=== PATIENT | female | born 1955 | race Caucasian/White ===

== ENCOUNTER 2022-10-19 11:13 | Outpatient (AMB) | payer MEDICARE, SELFPAY ==
--- NOTE | 2022-10-19 12:21 | AM.OFFWIN_ITS ---
Intake Vital Signs 10/19/22 12:23 BP 122/72 Blood Pressure Location Lt brachial Position Sitting Pulse 62 Pulse Source Pulse Oximeter Temp 97.7 F Temp Source Temporal Artery Scan Pulse Oximetry (%) 97 Oxygen Delivery Method Room Air Intake Visit Reasons: EP, Right ankle pain Patient Tobacco Use Status: Never used Tobacco Allergies No Known Allergies Allergy (Verified 10/19/22 12:38) Medication List - Last Reconciled 10/19/22 by Roscoe Jacobsen MD alendronate 35 mg PO QWEEK chlorthalidone 25 mg PO DAILY losartan 50 mg PO DAILY meloxicam 15 mg PO DAILY rosuvastatin 20 mg PO BEDTIME Do you need a note to return to daycare/school/sports/work: Yes HPI EP, Right ankle pain HPI Details Patient has injured her left foot and not the right foot. 67-year-old female presents to the [facility] for a sick visit. She tripped and fell over the stairs at home. Severe pain in the left foot around the ankle region. [facility] Social History Patient Tobacco Use Status: Never used Tobacco Physical Exam Vital Signs: Last Vital Signs Temp 97.7 F 10/19/22 12:23 Pulse 62 10/19/22 12:23 BP 122/72 10/19/22 12:23 Pulse Ox 97 10/19/22 12:23 Oxygen Delivery Method Room Air 10/19/22 12:23 Extrem Other: Left foot: Ankle is swollen. Pain on flexion. Assessment & Plan Assessment & Plan (1) Sprain of left ankle: Code(s): S93.402A - Sprain of unspecified ligament of left ankle, initial encounter Qualifiers: Encounter type: initial encounter Involved ligament of ankle: unspecified ligament Qualified Code(s): S93.402A - Sprain of unspecified ligament of left ankle, initial encounter Plan: X-ray images were personally reviewed by me. Nondisplaced fracture in the lower end of fibula noted. Aircast provided. Patient was advised to stay off the leg. A stat orthopedic appointment has been requested. Orders: Orders XR ankle LT min 3V Today S93.402A - Sprain of unspecified ligament of left ankle, initial encounter Referrals Orthopedics Referral S93.402A - Sprain of unspecified ligament of left ankle, initial encounter Coding Level of Care Code Est Pt Level 4 (99371) Diagnoses Sprain of left ankle, unspecified ligament, initial encounter S93.402A Encounter type: initial encounter Involved ligament of ankle: unspecified ligament
[2022-10-19 12:23] VITALS: BP 122/72; PULSE 62; TEMP 36.5; O2SAT 97
== END 2022-10-19 14:50 | disposition home or self-care (01) ==
PROVIDERS: PCP Pediatrics; Visit Provider Internal Medicine
DX: S93.402A Sprain of unspecified ligament of left ankle, initial encounter (principal)
CPT/HCPCS: 99214

== ENCOUNTER 2022-10-19 13:25 | Outpatient (REF) | payer MEDICARE, SELFPAY ==
--- NOTE | ~2022-10-19 | XR_ITS ---
EXAMINATION: XR ANKLE, LEFT CLINICAL INFORMATION: Sprain COMPARISON: None available. TECHNIQUE: AP, lateral, and mortise views of the left ankle. FINDINGS: Lateral malleolar soft tissue swelling. Nondisplaced oblique fracture of the distal fibula. Mortise remains intact. Alignment and articulations are maintained. XR/XR ankle LT min 3V IMPRESSION: Nondisplaced distal left fibular fracture with soft tissue swelling.
== END 2022-10-19 13:26 | disposition home or self-care (01) ==
LOC: HO.HMGCX 13:25
PROVIDERS: PCP Pediatrics; Visit Provider Internal Medicine
DX: S93.402A Sprain of unspecified ligament of left ankle, initial encounter (principal)
CPT/HCPCS: 73610

== ENCOUNTER 2022-10-27 10:27 | Outpatient (AMB) | payer MEDICARE, SELFPAY ==
--- NOTE | 2022-10-27 10:43 | A.OFFVIS_ITS ---
Intake Vital Signs 10/27/22 11:07 Height 5 ft 6 in Weight 179 lb BMI 28.9 Intake Visit Reasons: fc-Non displaced fibular fracture left ankel Intake Note: Dara a 67 year old female who presents today as a new patient for an evaluation of left ankle, DOI 10/19/22. Patient reports that she tripped and fell over the stairs outside of home. She presented to [facility] walk in clinic where xrays were taken and placed in an air cast. Currently having achy pain and bruising. Denies numbness or tingling. Allergies No Known Allergies Allergy (Verified 10/27/22 11:06) HPI fc-Non displaced fibular fracture left ankel HPI Details 67-year-old female who presents to the [facility] today for left ankle injury after tripping and falling over the stairs outside of his home, 10/19/22. She was seen at walk-in clinic where x-rays were performed and she was placed in a splint She states she has achy pain and bruising in her ankle. She denies any numbness or tingling. 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 No discomfort along the posterior aspect of the ankle, no deformity along the Achilles tendon, negative Baron?s. No pain along the syndesmosis or anterior tibia. No laxity, NVI. Office Procedures Fracture Care Fracture Billing Code: Fracture Billing Code Results Reviewed Results Reviewed: xrays of the left ankle obtained in the ED on 10/19 show Nondisplaced distal left fibular fracture with soft tissue swelling. Assessment & Plan Assessment & Plan (1) Closed left ankle fracture: Code(s): S82.892A - Other fracture of left lower leg, initial encounter for closed fracture Qualifiers: Encounter type: initial encounter Qualified Code(s): S82.892A - Other fracture of left lower leg, initial encounter for closed fracture Plan She was fit for a tall boot in the office today. She will be weight bearing as tolerated. She can remove the boot for showering, resting and sleeping. I would like to see her back in 6 weeks with new x-rays, sooner if needed. 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 Patient Instructions: Scribed for Nando Aguirre PA-C, by Kumar Ríos medical management specialist, on 10/27/2022 at 10:30 AM EST. I, Nando Aguirre PA-C, have personally reviewed and agree with the information entered by the scribe. Coding Level of Care Code New Pt Level 3 (65752) Diagnoses Closed fracture of left ankle, initial encounter S82.892A Encounter type: initial encounter CPT Codes Fracture Care - Fracture Billing Code: Fracture Billing Code ([id number])
[2022-10-27 11:07] VITALS: BMI 28.9
== END 2022-10-27 11:43 | disposition home or self-care (01) ==
PROVIDERS: PCP Pediatrics; Visit Provider Physician Assistant
DX: S82.892A Other fracture of left lower leg, initial encounter for closed fracture (principal)
CPT/HCPCS: 99203

== ENCOUNTER → 2022-10-27 10:27 | Outpatient (BNVA) | payer MEDICARE, SELFPAY | PROVIDERS: PCP Pediatrics; Visit Provider Physician Assistant ==

== ENCOUNTER 2022-12-08 12:25 | Outpatient (REF) | payer MEDICARE, SELFPAY ==
--- NOTE | ~2022-12-08 | XR_ITS ---
EXAMINATION: XR ANKLE, LEFT CLINICAL INFORMATION: Left ankle 10/19/2022 COMPARISON: None available. TECHNIQUE: AP, lateral, and mortise views of the left ankle. FINDINGS: No change in position or alignment of the oblique fracture of the distal fibula. Interval development of abundant callus formation. The ankle mortise is well-maintained. Interval decrease in soft tissue swelling over the lateral malleolus. XR/XR ankle LT min 3V IMPRESSION: Healing nondisplaced fracture of the distal left fibula.
== END 2022-12-08 12:26 | disposition home or self-care (01) ==
LOC: HO.HOSX 12:25
PROVIDERS: Visit Provider Physician Assistant
DX: M25.572 Pain in left ankle and joints of left foot (principal); S82.892D Other fracture of left lower leg, subsequent encounter for closed fracture with routine healing; X58.XXXD Exposure to other specified factors, subsequent encounter
CPT/HCPCS: 73610; 99212

== ENCOUNTER 2022-12-08 15:16 | Outpatient (AMB) | payer MEDICARE, SELFPAY ==
[2022-12-08 15:27] VITALS: BMI 28.9
--- NOTE | 2022-12-08 15:27 | A.OFFVIS_ITS ---
Intake Vital Signs 12/08/22 15:27 Height 5 ft 6 in Weight 179 lb BMI 28.9 Intake Visit Reasons: ov- Non displaced fibular fracture left ankel Intake Note: Dara bolanos 67 year old female presents today for a follow up of left fibular fx, DOI 10/19/22. Patient reports she is doing well, denies pain or discomfort. She continues to wear boot as instructed. Allergies No Known Allergies Allergy (Verified 12/08/22 15:34) HPI ov- Non displaced fibular fracture left ankel HPI Details 67-year-old female who returns to the [facility] today for a follow-up of left ankle fracture, 10/19/22. She states she has no pain or discomfort in her ankle and is doing well overall. She continues to wear the boot as instructed. 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 No discomfort along the posterior aspect of the ankle, no deformity along the Achilles tendon, negative Baron?s. No pain along the syndesmosis or anterior tibia. No laxity, NVI. Results Reviewed Results Reviewed: xrays of the left ankle obtained today show healing Nondisplaced distal left fibular fracture with callus formation Assessment & Plan Assessment & Plan (1) Closed left ankle fracture: Code(s): S82.892A - Other fracture of left lower leg, initial encounter for closed fracture Qualifiers: Encounter type: initial encounter Qualified Code(s): S82.892A - Other fracture of left lower leg, initial encounter for closed fracture Plan She is going to transition to a lace up ankle brace weight bearing as tolerated. She was also given an order of physical therapy to begin gentle strengthening, ROM, heel quad stretching and proprioceptive training. She can increase activity as tolerated. I did educate her on importance of not overdoing her activities as she is still in her healing process. I would expect over the next 6 weeks her symptoms will continue to improve as the fracture heals. If symptoms persist or worsens, patient will contact the office, otherwise follow-up as needed. Orders: Orders PT Evaluation and Treatment 12/08/22 S82.892A - Other fracture of left lower leg, initial encounter for closed fracture XR ankle LT min 3V 12/08/22 M25.572 - Pain in left ankle and joints of left foot Patient Instructions: Scribed for Nando Aguirre PA-C, by Kumar Ríos medical photographer, on 12/08/2022 at 3:30 PM EST. Nando Vargas PA-C, have personally reviewed and agree with the information entered by the scribe. Coding Level of Care Code Global (30168) Diagnoses Closed fracture of left ankle, initial encounter S82.892A Encounter type: initial encounter
== END 2022-12-08 15:54 | disposition home or self-care (01) ==
PROVIDERS: PCP Pediatrics; Visit Provider Physician Assistant
DX: S82.892A Other fracture of left lower leg, initial encounter for closed fracture (principal)
CPT/HCPCS: 99213

== ENCOUNTER 2022-12-20 14:00 | Outpatient (RCR) | payer MEDICARE, SELFPAY ==
--- NOTE | 2022-12-15 14:50 | MHC.PT.EP ---
[facility] [place] Office [place] Office [place] Office [address] [phone] F: [phone] F: [phone] F: [phone] F: [phone] Physical Therapy Plan of Care Date of Evaluation: 12/15/22 Date of Surgery: Diagnosis: Fx of L lower leg. Assessment: Patient is a 67 year old R handed female who presents with s/s consistent with s/p L ankle fracture, ankle pain. 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 Patient past medical history includes OA of knee and PF of L foot. Current impairments include pain, balance, flexibility, ROM, strength, activity tolerance and functional mobility. Functional limitations include decreased ability to stand, walk, negotiate stairs, clean, and be on feet for longer periods of time. Patient is motivated with good rehab potential. Skilled PT will address impairments and functional limitations in order to achieve goals. Frequency and Duration: The patient will be seen 2x/week for 5 weeks Short Term Goals: I with HEP - 2 weeks AROM WNL - 3 weeks Symmetrical gait, no brace - 3 weeks [place] Goals: Able to walk pain free 1 mile - 5 weeks Negotiate stairs pain free - 5 weeks LEFS 60/80 - 5 weeks Treatment Plan: Modalities to reduce pain, spasms and effusion. Manual therapy to restore motion and function. Therapeutic exercise to improve strength and flexibility. Neuromuscular re-education for posture and balance. Therapeutic activities to return to functional activities of daily living. Electronically signed by: Ashwin Cox PT Please sign and return to therapist. Thank you for your referral.
--- NOTE | 2023-10-20 10:43 | MHC.PT.DC ---
[facility] [place] Office [place] Office [place] Office [address] Tamir Yao [address] [phone] F: [phone] F: [phone] F: [phone] F: [phone] Physical Therapy Discharge Report Diagnosis: Fx of L lower leg. Date of Surgery: Date of Evaluation: 12/15/22 Date of Discharge: 02/22/23 Treatments to Date: 2 Cancellations to Date: No Shows to Date: Discharge Status: Independent with HEP Patient Elected to Stop Discharge Summary: 12/20/22: pt progressed with skilled PT today. no pain with above program. we will see pt one more time and update HEP. likely d/c to HEP at that point. Patient is a 67 year old R handed female who presents with s/s consistent with s/p L ankle fracture, ankle pain. 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 Patient past medical history includes OA of knee and PF of L foot. Current impairments include pain, balance, flexibility, ROM, strength, activity tolerance and functional mobility. Functional limitations include decreased ability to stand, walk, negotiate stairs, clean, and be on feet for longer periods of time. Patient is motivated with good rehab potential. Skilled PT will address impairments and functional limitations in order to achieve goals. Electronically signed by: Ashwin Cox, PT Please sign and return to therapist. Thank you for your referral.
== END 2023-10-20 10:44 | disposition home or self-care (01) ==
LOC: HO.PTCHIC 14:00
PROVIDERS: PCP Pediatrics; Visit Provider Physician Assistant
DX: S82.892A Other fracture of left lower leg, initial encounter for closed fracture (principal)
CPT/HCPCS: 97110; 97112; 97162

== ENCOUNTER 2023-08-17 18:10 | Outpatient (REF) | payer MEDICARE, SELFPAY ==
--- NOTE | ~2023-08-17 | MR_ITS ---
EXAMINATION: MR BRAIN WITHOUT CONTRAST CLINICAL INFORMATION: 68-year-old with aphasia. COMPARISON: None available. TECHNIQUE: MRI of the brain was obtained using routine sequences without contrast. FINDINGS: Brain Volume: Within normal limits within the limitations of qualitative assessment. Structural: Minimal cerebellar tonsillar ectopia on the right, normal variant. Brain and Meninges: DWI sequence demonstrates no restricted diffusion to suggest acute or subacute cerebral ischemia. Scattered patchy and punctate foci of FLAIR/T2 signal hyperintensity in the subcortical and deeper white matter of both cerebral hemispheres, which are nonspecific findings but likely reflect chronic ischemic microangiopathy. A few punctate T2 hyperintensities are seen in the devorah, which could also reflect minimal chronic ischemic microangiopathy. Gradient refocused imaging demonstrates no abnormal susceptibility-weighted signal loss to suggest hemorrhage, hemosiderin staining or abnormal mineralization. No extra-axial fluid collections, space-occupying process or mass effect are identified. Ventricles and Subarachnoid Spaces: The ventricular system and subarachnoid spaces are within normal range; there is no hydrocephalus. Orbital Structures: The visualized orbital structures are grossly unremarkable within the limitations of the study. Vascular: Signal voids are noted in the visualized major intracranial vessels. Note that there is probably some slow flow related signal hyperintensity in the left transverse and sigmoid sinuses. Osseous Structures, Sinuses/Mastoids, Extracranial Soft Tissues: There is hyperostosis frontalis interna, which is an anatomic variant. There is minor mucosal thickening in the anterior ethmoid complex and there is nasal septal deviation to the right. MR/MR head/brain wo con IMPRESSION: 1. Chronic ischemic microangiopathy in the white matter of both cerebral hemispheres and minimal chronic ischemic microangiopathy in the devorah. 2. No evidence for acute or subacute cerebral ischemia, hemorrhage, extra-axial fluid collection, space-occupying process, mass effect or hydrocephalus.
== END 2023-08-17 18:11 | disposition home or self-care (01) ==
LOC: HO.MRI 18:10
PROVIDERS: PCP Pediatrics; Visit Provider Pediatrics
DX: R47.01 Aphasia (principal)
CPT/HCPCS: 70551

== ENCOUNTER 2024-05-22 12:00 | Outpatient (REF) | payer MEDICARE, SELFPAY ==
[2024-05-22 14:10] LABS: Vitamin B12 513 pg/mL (200-900)
--- OUTSIDE RECORDS SUMMARY | 2024-05-22 14:48 | XMS_ITS | Patient Health Record ---
Author Organization [facility] Address [address] [place] [address] Care Team Providers Care Automotive Dismantler Name Role Phone Dwayne Whittington MD Primary Care Provider Unavail able Rashaad Bonilla Unavailable [phone] Allergies No Known Allergies Reason For Referral No Information Medications Medication SIG (Take, Route, Frequency, Duration) Notes Start Date End Date Status Meloxicam Active Omeprazole 20 MG 1 capsule 30 minutes before morning meal Orally Once a day for 30 day(s) Active Flonase Active Losartan Potassium 50 MG 1 tablet Orally Once a day for 30 day(s) Active Chlorthalidone 25 MG 1 tablet in the morning with food Orally Once a day for 30 day(s) Active Diclofenac Not-Takin g Cetirizine HCl Activ e Allergy Active Rosuvastatin Calcium 20 MG 1 tablet Oral ly Once a day for 30 day(s) Active Immunizations Vaccine Route Administration Date Status Comme nts COVID-19 Moderna Vaccine Unknown 11/18/2021 Administere d Social History Tobacco Use: Social History Observation Description Date Details (start date - stop date) Never Smoker NA - NA Tobacco Use/Smoking Question Answer Notes Are you a: nonsmoker Additional Findings: Tobacco Non-User Current no n-smoker Alcohol Screen Question Answer Notes Did you have a drink contain ing alcohol in the past year? Yes How often did you have a dri nk containing alcohol in the past year? Monthly or less (1 point) Points 1 Interpretation Negative Tobacco use other than smoking: Question Answer Notes Are you an other tobacco user? No Plan Of Treatment Pending Test Test Name Order Date X ray : Foot, right 3V 01/28/2022 Insurance Providers Payer Name Payer Address Payer Phone Subscriber Number Group Number Insured Name Patient Relationship to Insured Coverage Start Date Coverage End Date [employer] 65 Medicare Preferred [address] [place] [address] [phone] [id number] Dara Connor Self - patient is the insured Medical (General) History Medical History History ICD Code Arthritis Back,Hip,and Knee pain Headaches/Migraines Osteoporosis Reflux ( GERD) Surgical History Surgery Date(Month/Year) Hospitalization History Reason Date(Month/Year) 02/28
--- OUTSIDE RECORDS SUMMARY | 2024-05-22 14:48 | XMS_ITS | Clinical Summary ---
Author Organization [employer] Address [address] [place] [address] [place] [address] Care Team Providers Care Insurance Plan Specialist Name Role Phone Unavailable Primary Care Provider Unavailabl e Social History Tobacco Use Types Packs/Day Years Used Date Smoking Tobacco: Never Assessed Comments Unknown Sex and Gender Information Value Date Recorded Sex Assigned at Female 12/07/2021 10:24 AM EDT Legal Sex Female 10:24 AM EDT Gender Identity Choose not to disclose 10:24 AM EDT Sexual Orientation Choose not to disclose 2021 10:24 AM EDT Plan of Treatment Health Maintenance Due Date Last Done Comments CT Colonography 1953 Colonoscopy 1953 Colorectal Cancer Screening 1953 Depression Screening 1953 FIT DNA/Cologuard 1953 FIT 1953 FOBT 1953 Sigmoidoscopy 1953 Alcohol/Substance Use Screening 1965 Tobacco Screening 1965 DTaP/Tdap/Td Vaccines (1 - Tdap) 1972 Mammogram 1993 Pneumococcal Vaccine: 50+ Ye ars (1 of 1 - PCV) 06/08/2003 Zoster Vaccines (1 of 2) 06/08/2003 COVID-19 Vaccine ( - 2023-2 5 season) 2023 Influenza Vaccine (#1) 2023 RSV Patients and Pa tients Aged 60 years or older (1 - 1-dose 75+ series) 2028 HIB Vaccines Aged Out No longer eligi ble based on patient's age to complete this topic HPV Vaccines Aged Out No longer eligi ble based on patient's age to complete this topic Hepatitis A Vaccines Aged Out No long er eligible based on patient's age to complete this topic Hepatitis B Vaccines Aged Out No long er eligible based on patient's age to complete this topic IPV Vaccines Aged Out No longer eligi ble based on patient's age to complete this topic Meningococcal Vaccine Aged Out No yayo tracy eligible based on patient's age to complete this topic RSV under 20 months Aged Out No longe r eligible based on patient's age to complete this topic Rotavirus Vaccines Aged Out No longer eligible based on patient's age to complete this topic
--- OUTSIDE RECORDS SUMMARY | 2024-05-22 14:48 | XMS_ITS | Encounter Summary ---
Author Organization [employer] Address [address] [place] [address] Care Team Providers Care Photo Optics Technician Name Role Phone Unavailable Primary Care Provider Unavailabl e Encounter Details Date Type Department Care Team (Latest Contact Info) Description 03/13/2018 Abstract [facility] Dental, Provider, DDS Social History Tobacco Use Types Packs/Day Years Used Date Smoking Tobacco: Never Assessed Comments Unknown Sex and Gender Information Value Date Recorded Sex Assigned at Female 12/07/2021 10:24 AM EDT Legal Sex Female 10:24 AM EDT Gender Identity Choose not to disclose 10:24 AM EDT Sexual Orientation Choose not to disclose 2021 10:24 AM EDT documented as of this encounter Plan of Treatment Not on file documented as of this encounter Visit Diagnoses Not on filedocumented in this encounter
--- OUTSIDE RECORDS SUMMARY | 2024-05-22 14:48 | XMS_ITS | Clinical Summary ---
Author Organization [facility] Address [address] [place] [address] Phone Care Team Providers Care Microbiology Director Name Role Phone Dwayne Freed MD Primary Care Provider Encounters Date Type Department Care Team Description 05/02/2024 3:00 PM EDT - 05/02/2024 11:59 PM EDT Hospital Encounter [facility] PET Scan [address] [place] [address] Alzheimer's disease, unspecified (CODE) ([facility] V24, [facility] V28) Discharge Disposition: Home or Self Care from Last 3 Months Social History Tobacco Use Types Packs/Day Years Used Date Smoking Tobacco: Never Assessed Comments Unknown Sex and Gender Information Value Date Recorded Sex Assigned at Female 05/02/2024 2:54 PM EDT Legal Sex Female 5:16 AM EST Gender Identity Female 05/02/2024 2:54 PM EDT Sexual Orientation Not on file Plan of Treatment Health Maintenance Due Date Last Done Comments Zoster Vaccines (2 of 3) 04/05/2016 02/09/2016 Cholesterol Screening (Lipid Panel) 01/10/2022 Depression Screening 01/10/2022 Falls Risk Assessment 01/10/2022 Hepatitis C Screening 01/10/2022 Social Influencers of Health Screening 01/10/2022 COVID-19 Vaccine ( season) 2023 06/30/2022, 11/18/2021, 12/05/2020, Additional history exists Colorectal Cancer Screening: FIT-DNA (Cologuard) 03/18/2024 03/18/2021, 03/18/2021 Breast Cancer Screening 04/24/2025 04/25/19, 04/20/2022, 04/13/2021, Additional history exists RSV Immunization Adult Patients (1 - 1-dose 75+ series) 2028 DTaP,Tdap,and Td Vaccines (4 - Td or Tdap) 03/02/2031 03/02/2021, 02/16/2018, 05/16/2008 Osteoporosis Screening (Bone Density Screening) 07/04/2031 07/03/2021, 03/09/2019 Pneumococcal Vaccine: 50+ Years Completed 02/28/2020, 09/26/2018 Influenza Vaccine Completed 10/26/2023, , 11/18/2021, Additional history exists HIB Vaccines Aged Out No longer eligi [...] on patient's age to complete this topic MMR Vaccines Aged Out No longer eligi ble based on patient's age to complete this topic Meningococcal ACWY Vaccine Aged Out N o longer eligible based on patient's age to complete this topic Meningococcal B Vaccine Aged Out No l onger eligible based on patient's age to complete this topic RSV Immunization Patients Under 20 months Aged Out No longer eligible based on patient's age to complete this topic Varicella Vaccines Aged Out No longer eligible based on patient's age to complete this topic Procedures Procedure Name Priority Date/Time Associated Diagnosis Comments PET CT LIMITED AREA INITIAL Routine 05/02/2024 4:45 PM EDT Alzheimer's disease, unspecified (CODE) ([facility] V24, [facility] V28) [facility] SCREENING DIGITAL Routine 04/25/2023 3:23 PM EDT Encounter for screening mammogram for malignant neoplasm of breast [facility] DEXA AXIAL SKELETON Routine 07/03/2021 7:52 AM EDT Encounter for screening for osteoporosis from Last 3 Months or Most Recently Relevant to Health Maintenance Results * PET CT Limited Area Initial (05/02/2024 4:45 PM EDT) Anatomical Region Laterality Modality Body Radiographic Cha ging 05/10/2024 3:27 AM EDT Impressions 05/15/2024 6:37 PM EDT Negative study This scan was interpreted using consensus imaging with another board certified radiologist, Dr. Crabtree. Please note: The CT was acquired at a low radiation dose settings. ??The images are of nondiagnostic quality and used solely for purposes of attenuation correction and slice localization for the PET scan. ??If a diagnostic CT study is desired it must be ordered separately. -------- FINAL REPORT -------- Dictated By: Asuncion Medina Dictated Date: 05/10/2024 03:27 ET Assigned Physician: Asuncion Medina Reviewed and Electronically Signed By: Asuncion Medina Signed Date: 05/15/2024 18:37 ET Workstation ID: [id number] Transcribed By: Self Edit Transcribed Date: 05/10/2024 03:29 ET Narrative 05/15/2024 6:37 PM EDT INDICATION: ALZHEIMER'S DISEASE TECHNIQUE: F-18 Amyvid PET imaging was performed from of the head in a single acquisition with data set reconstructed in axial, coronal, and sagittal planes at the computer workstation with fused data from both the PET imaging study and attenuation correction CT. The CT portion of the examination was done strictly for attenuation correction and is not a true diagnostic CT examination. DLP: ??1050 mGy-cm Radiopharmaceutical: 9.8 mCi of F-18 Florbetapir IV. COMPARISON: Correlation is made with brain MRI dated August 2023. FINDINGS: HEAD AND NECK: Preservation of graf-white matter differentiation. Procedure Note Asuncion Medina MD - 05/15/2024 INDICATION: ALZHEIMER'S DISEASE TECHNIQUE: F-18 Amyvid PET imaging was performed from of the head in asingle acquisition with data set reconstructed in axial, coronal, andsagittal planes at the computer workstation with fused data from both thePET imaging study and attenuation correction CT. The CT portion of theexamination was done strictly for attenuation correction and is not a truediagnostic CT examination. DLP: 1050 mGy-cm Radiopharmaceutical: 9.8 mCi of F-18 Florbetapir IV. COMPARISON: Correlation is made with brain MRI dated August 2023. FINDINGS: HEAD AND NECK: Preservation of graf-white matter differentiation. IMPRESSION: Negative study This scan was interpreted using consensus imaging with another boardcertified radiologist, Dr. Crabtree. Please note: The CT was acquired at a low radiation dose settings. The images are ofnondiagnostic quality and used solely for purposes of attenuationcorrection and slice localization for the PET scan. If a diagnostic CTstudy is desired it must be ordered separately. -------- FINAL REPORT -------- Dictated By: Asuncion Medina Dictated Date: 05/10/2024 03:27 ET Assigned Physician: Asuncion Medina Reviewed and Electronically Signed By: Asuncion Medina Signed Date: 05/15/2024 18:37 ET Workstation ID: [id number] Transcribed By: Self Edit Transcribed Date: 05/10/2024 03:29 ET us Mago Holden MD IMG NM PROCEDURES Final Res ult * [facility] SCREENING DIGITAL (04/25/2023 3:23 PM EDT) Anatomical Region Laterality Modality Mammography 04/25/2023 1:55 PM EDT Narrative 04/25/2023 3:[address] [facility] Diagnostic Imaging Department [address] [place] [address] Patient: ??MIKEL DAVILA ?/Age/Sex: 1955 - - F Unit#: ??[id number] ? Location/Status: ??SPDIMAM/REG CLI ? Mnemonic/Ordering Site: ??DIGSC/SPMAM Ordering Physician: ??DWAYNE FREED MD [facility] Screening Digital - 04/25/23 - 1409 Report Status:Signed EXAM: [facility] Screening Digital EXAM DATE AND TIME: 04/25/2023 2:10 PM HISTORY: ??Annual screening COMPARISON: ??Multiple exams dating back to 2016 TECHNIQUE: Bilateral digital breast tomosynthesis was performed in the CC and MLO projections. Computer aided detection with Easy Taxi 3D 3.1 was employed. TISSUE DENSITY: b. There are scattered areas of fibroglandular density. FINDINGS: No suspicious masses, grouped microcalcifications, or areas of architectural distortion are seen. The skin and vascularity are unremarkable. IMPRESSION: Stable mammographic appearance of the breasts. ??No evidence of malignancy is seen. A negative mammogram in the presence of a clinically suspicious palpable abnormality does not preclude the possibility of malignancy or alter the indications for biopsy. BI-RADS: ??Category 1: Negative RECOMMENDATION(S): 1: Routine screening mammogram BILATERAL in 1 year. 3341F, 7025F Dictating Physician: ??JOANIE ROGERS MD Electronically Signed by: ??JOANIE ROGERS MD Dic Date/Time: ??04/25/23 1522 Sign date/Time: ??04/25/23 1523 Procedure Note Joanie Rogers MD - 09/26/2023 [facility] Diagnostic Imaging Department [address] [place] [address] Patient: MIKEL DAVILA /Age/Sex: 1955 - 67 - F Unit#: [id number] Location/Status: SPDIMAM/REG CLI Mnemonic/Ordering Site: [facility] Ordering Physician: DWAYNE FREED MD [facility] Screening Digital - 04/25/23 - 1409 Report Status:Signed EXAM: [facility] Screening Digital EXAM DATE AND TIME: 04/25/2023 2:10 PM HISTORY: Annual screening COMPARISON: Multiple exams dating back to 2016 TECHNIQUE: Bilateral digital breast tomosynthesis was performed in the CCand MLO projections. Computer aided detection with Easy Taxi 3D 3.1was employed. TISSUE DENSITY: b. There are scattered areas of fibroglandular density. FINDINGS: No suspicious masses, grouped microcalcifications, or areas ofarchitectural distortion are seen. The skin and vascularity are unremarkable. IMPRESSION: Stable mammographic appearance of the breasts. No evidence of malignancyis seen. A negative mammogram in the presence of a clinically suspicious palpable abnormality does not preclude the possibility of malignancy or alter the indications for biopsy. BI-RADS: Category 1: Negative RECOMMENDATION(S): 1: Routine screening mammogram BILATERAL in 1 year. 3341F, 7025F Dictating Physician: JOANIE ROGERS MD Electronically Signed by: JOANIE ROGERS MD Dic Date/Time: 04/25/23 1522 Sign date/Time: 04/25/23 1523 Dwayne Freed MD IMG BI PROCEDURES Final Result * [facility] DEXA AXIAL SKELETON (07/03/2021 7:52 AM EDT) Anatomical Region Laterality Modality Mammography 07/02/2021 1:19 PM EDT Narrative 07/03/2021 7:[address] [facility] Diagnostic Imaging Department [address] [place] [id number] Patient: ??MIKEL DAVILA ?/Age/Sex: 1955 - F Unit#: ??[id number] ? Location/Status: ??SPDIMAM/REG CLI ? Mnemonic/Ordering Site: ??MAMDEXAAX/SPMAM Ordering Physician: ??DWAYNE FREED MD [facility] Dexa Axial Skeleton - 07/02/21 - HISTORY: ??The patient is a 66-year-old postmenopausal female with clinical concern for metabolic bone disease. FINDINGS: ??Dual energy x-ray absorptiometry of the lumbar spine and femurs is performed. The mean bone mineral density at L1-L4 (with the exclusion of L3) is 1.077 gm/cm2 which is 92% of that of young normals and 102% of that of age matched controls. This yields a T-score of -0.8 and a Z-score of 0.2 and there is therefore no evidence of osteoporosis or osteopenia here. The mean bone mineral density of the femurs bilaterally is 0.771 gm/cm2 which is 76% of that of young normals and 86% of that of age matched controls. ??This yields a T-score of -1.9 and a Z-score of -1.0 which is diagnostic of osteopenia. ??However, the T-score of the right femoral neck is -2.6 and that of the left femoral neck is -2.5 which is diagnostic of osteoporosis. IMPRESSION: 1. Osteoporosis. ??There has been an increase of 0.8% in bone mineral density in the lumbar spine since the prior examination of 03/07/2019. ??There has been a decrease of 6.3% in bone mineral density in the right femur and a decrease of 2.3% in bone mineral density in the left femur. 2. FRAX analysis yields a 10-year probability of major osteoporotic fracture of 23.2% and a 10-year probability of hip fracture of 5.8%. Code 00097 Dictating Physician: ??DAVIDA DE LUNA MD Electronically Signed by: ??DAVIDA DE LUNA MD Dic Date/Time: ??07/03/21 0750 Sign date/Time: ??07/03/21 075 Procedure Note Davida De Luna MD - 01/27/2022 [facility] Diagnostic Imaging Department [address] [place] [address] Patient: YASMANI DAVILAMIKEL C /Age/Sex: 1955 - 66 - F Unit#: [id number] Location/Status: [facility] CLI Mnemonic[facility] Ordering Physician: DWAYNE FREED MD [facility] Dexa Axial Skeleton - 07/02/21 - HISTORY: The patient is a 66-year-old postmenopausal female withclinical concern for metabolic bone disease. FINDINGS: Dual energy x-ray absorptiometry of the lumbar spine and femursis performed. The mean bone mineral density at L1-L4 (with the exclusion ofL3) is 1.077 gm/cm2 which is 92% of that of young normals and 102% of that ofage matched controls. This yields a T-score of -0.8 and a Z-score of 0.2 andthere is therefore no evidence of osteoporosis or osteopenia here. The mean bone mineral density of the femurs bilaterally is 0.771 gm/eo9kllaf is 76% of that of young normals and 86% of that of age matched controls.This yields a T-score of -1.9 and a Z-score of -1.0 which is diagnostic of osteopenia. However, the T-score of the right femoral neck is -2.6 andthat of the left femoral neck is -2.5 which is diagnostic of osteoporosis. IMPRESSION: 1. Osteoporosis. There has been an increase of 0.8% in bone mineraldensity in the lumbar spine since the prior examination of 03/07/2019. There has toña decrease of 6.3% in bone mineral density in the right femur and a decreaseof 2.3% in bone mineral density in the left femur. 2. FRAX analysis yields a 10-year probability of major osteoporoticfracture of 23.2% and a 10-year probability of hip fracture of 5.8%. Code 91900 Dictating Physician: DAVIDA DE LUNA MD Electronically Signed by: DAVIDA DE LUNA MD Dic Date/Time: 07/03/21 0750 Sign date/Time: 07/03/21 0752 Dwayne Freed MD IMG BI PROCEDURES Final Result from Last 3 Months or Most Recently Relevant to Health Maintenance Insurance [place] [id number] [facility] Care Teams Microbiology Director Relationship Specialty Start Date End Date Dwayne Freed MD [address] PCP - General Internal Medicine 05/02/24
== END 2024-05-22 12:01 | disposition home or self-care (01) ==
LOC: HO.LAB 12:00
PROVIDERS: PCP Pediatrics; Visit Provider Psychiatry & Neurology Neurology
DX: G31.84 Mild cognitive impairment of uncertain or unknown etiology (principal)
CPT/HCPCS: 36415; 82607; 84443

== ENCOUNTER 2024-07-16 08:57 | Outpatient (REF) | payer MEDICARE, SELFPAY ==
--- NOTE | ~2024-07-16 | XR_ITS ---
EXAMINATION: XR KNEE 3 VIEWS BILATERAL HISTORY: pain COMPARISON: There are no prior studies available for comparison. FINDINGS: Standing AP views of both knees and additional lateral and sunrise patellar views of the bilateral knees are submitted. A flocculent calcification in the left distal femoral metaphysis may represent an enchondroma or bone infarct. There is no fracture or dislocation. There is severe osteoarthritis of the medial compartments of both knees with joint space narrowing and osteophyte formation. There is moderate osteoarthritis of the bilateral lateral and patellofemoral compartments. The soft tissues are unremarkable. There is no joint effusion. XR/XR Knee Santy 3V IMPRESSION: Osteoarthritis of the bilateral knees as described. Electronically signed by: Jersey Alba MD 07/16/2024 12:58 PM EDT
--- OUTSIDE RECORDS SUMMARY | 2024-07-17 09:32 | XMS_ITS | Encounter Summary ---
Author Organization [facility] Address [address] [place] [address] 7 [place] [address] Care Team Providers Care Spooling Machine Operator Name Role Phone Unavailable Primary Care Provider Unavailabl e Encounter Details Date Type Department Care Team (Latest Contact Info) Description 03/13/2018 Abstract [facility] CONVERSIONS Dental, Provider, DDS Social History Tobacco [...]
== END 2024-07-16 08:58 | disposition home or self-care (01) ==
LOC: HO.HOSX 08:57
PROVIDERS: Visit Provider Physician Assistant
DX: M17.0 Bilateral primary osteoarthritis of knee (principal)
CPT/HCPCS: 73562; 99212

== ENCOUNTER 2024-07-16 11:26 | Outpatient (AMB) | payer MEDICARE, SELFPAY ==
--- NOTE | 2024-07-16 11:28 | A.OFFVIS_ITS ---
Vital Signs 07/16/24 11:46 Height 5 ft 6 in Weight 190 lb BMI 30.7 Intake Visit Reasons: NewProb- B/L Knee pain, wants gel inj Intake Note: Dara is a 69 year old female who presents for an evaluation of bilateral knee pain. Patient was previously seen at [facility] where she was receiving gel injections. Her last injection was the series of the gelsyn gel injection was administered on 05/12/23. Patient reports that she has been receiving relief from gel injections. States her right knee causes her the most discomfort. Finds relief with Tylenol arthritis and meloxicam as needed. She would like to repeat gel injections. Allergies No Known Allergies Allergy (Verified 07/16/24 11:40) Medication List - Last Reconciled 07/16/24 by Nando Aguirre PA-C alendronate 35 mg PO QWEEK cetirizine (Allergy Relief (cetirizine)) 10 mg PO DAILY PRN chlorthalidone 25 mg PO DAILY losartan 50 mg PO DAILY meloxicam 15 mg PO DAILY omeprazole 20 mg PO DAILY PRN rosuvastatin 20 mg PO BEDTIME HPI HPI NewProb- B/L Knee pain, wants gel inj: Details: 69 yo female presents to the office today for bilat knee pain. She states she has had gel injections in the past which have been helpful for her. 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 She does not feel her ADLs are affected by her knee OA. 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 Tenderness along the medial patellar femoral joint. Calf supple and nontender neurovascularly intact. Results Reviewed Results Reviewed: X-rays of both knees obtained in the office today and reviewed by me show end- stage osteoarthritis. Assessment & Plan Assessment & Plan (1) Osteoarthritis of knees, bilateral: Code(s): M17.0 - Bilateral primary osteoarthritis of knee Category: Medical Plan: We discussed options today which include conservative management with physical therapy and injections. She has had gel injections with great relief in the past and would like to proceed with repeat gel series. She will also attend physical therapy to work on strengthening and conditioning exercises. Once the gel is approved we will contact her to schedule an appointment. Orders: Orders XR Knee Santy 3V Today M25.561 - Pain in right knee, M25.562 - Pain in left knee PT Evaluation and Treatment Today M17.0 - Bilateral primary osteoarthritis of knee Coding Level of Care Code New Pt Level 3 (45910) Complex EM visit Add On G2211 Diagnoses Osteoarthritis of knees, bilateral M17.0
[2024-07-16 11:46] VITALS: BMI 30.7
== END 2024-07-16 13:02 | disposition home or self-care (01) ==
LOC: HO.HOS 11:26
PROVIDERS: PCP Pediatrics; Visit Provider Physician Assistant
DX: M17.0 Bilateral primary osteoarthritis of knee (principal)
CPT/HCPCS: 99213; G2211

== ENCOUNTER → 2024-07-16 11:28 | Outpatient (BNV) | payer MEDICARE, SELFPAY | PROVIDERS: Visit Provider Radiology Diagnostic Radiology | DX: M17.0 Bilateral primary osteoarthritis of knee (principal) | CPT/HCPCS: 73562 ==

== ENCOUNTER 2024-07-23 08:43 | Outpatient (REF) | payer MEDICARE, SELFPAY ==
--- OUTSIDE RECORDS SUMMARY | 2024-07-23 09:08 | XMS_ITS | Encounter Summary ---
Author Organization [facility] Address [address] [place] [address] [address] [place] [address] Care Team Providers Care Radio Electronics Technician Name Role Phone Unavailable Primary Care Provider Unavailabl e Encounter Details Date Type Department Care Team (Latest Contact Info) Description 03/13/[address] [facility] CONVERSIONS Dental, Provider, DDS Social History [...]
== END 2024-07-23 08:44 | disposition home or self-care (01) ==
LOC: HO.MAMMO 08:43
PROVIDERS: PCP Pediatrics; Visit Provider Pediatrics
DX: Z12.31 Encounter for screening mammogram for malignant neoplasm of breast (principal)
CPT/HCPCS: 77063; 77067

== ENCOUNTER → 2024-07-23 09:15 | Outpatient (BNV) | payer MEDICARE, SELFPAY | PROVIDERS: PCP Pediatrics; Visit Provider Internal Medicine | DX: Z12.31 Encounter for screening mammogram for malignant neoplasm of breast (principal) | CPT/HCPCS: 77063; 77067 ==

== ENCOUNTER 2024-08-08 | Outpatient (REF) | payer MEDICARE, SELFPAY ==
--- OUTSIDE RECORDS SUMMARY | 2024-08-30 08:35 | XMS_ITS | Data Portability ---
Author Organization [facility], [facility] Address [address] [place] [address] Care Team Providers Care Car Lot Attendant Name Role Phone BRENDA FREED Primary Care Provider [phone] Assessment No assessment recorded. Plan of Treatment Reminders Order Date Submit Date Provider Last Modified By Organization Details Last Modified Time Details Appointments None recorded. Lab None recorded. Referral None recorded. Procedures None recorded. Surgeries None recorded. Imaging MRI, cervical spine, w/o contrast - MRI c-spine eval neck pain and rue pain 2023 024 [facility], [address], [facility] [address], [place], [address], 18:54:13 Medication Orders None recorded. Patient TargetsNo targets recorded. Patient InstructionsNo instructions recorded. Reason for Referral None Reported. Results Created Date Observation Date Name Description Value Unit Range Abnormal Flag Note LastModifiedBy Organization Detail LastModifiedTime 06/11/19 24 06/09/2023 MRI, cervi kamlesh spine , w/o contr ast No observ ation record ed. [facility] [address], [place], [address], 08/08/2023 15:04:23 Result Notes None recorded. Problems Name Problem SNOMED Code Status Onset Date Resolution Date Notes Provider Name and Address Organization Details Recorded Time Cervical spondylosis 713290762 Active 2023 Bruno Roberts MD [address], [place], [address] [place] [address] [facility] 4 13:22:42 Kyphosis of thoracic spine 008841142 Active 2023 Bruno Roberts MD [address], [place], [address], [facility] 13:22:43 Problem Notes None recorded. Procedures Surgical History Date Name Laterality Status Provider Name and Address Organization Details Recorded Time 4 Gelsyn-3 Knee Injection completed Krishna Solares PA-C [address], [place], [address], [facility] 05/26/2023 13:23:24 4 Gelsyn-3 Knee Injection completed Krishna Solares PA-C [address], [place], [address], [facility] 05/19/2023 12:47:10 4 Gelsyn-3 Knee Injection completed Marco Antonio Sanchez PA-C [address], [place], [address], [facility] 05/11/2023 16:13:59 Imaging Results [...] Updated DateTime 05/12/2023 167.64 cm 30.2 kg/m2 31782.77 g RUSSEL NARVAEZ [facility] 05/12/2023 12:56:36 Date Recorded Body height Body mass index (BMI) Body weight Provider Name and Address Organization Details Last Updated DateTime 05/19/2023 167.64 cm 30.2 kg/m2 69499.77 g NEGRITO GRANT [facility] 05/19/2023 13:18:14 Date Recorded Body height Body mass index (BMI) Body weight Provider Name and Address Organization Details Last Updated DateTime 05/26/2023 167.64 cm 30.5 kg/m2 28639.96 g NICOLE URRUTIA [facility] 05/26/2023 13:02:32 Date Recorded Body height Body mass index (BMI) Body weight Provider Name and Address Organization Details Last Updated DateTime 2023 167.64 cm 30.5 kg/m2 24528.96 g LACEY APODACA [facility] 2023 14:37:17 Date Recorded Body height Body mass index (BMI) Body weight Provider Name and Address Organization Details Last Updated DateTime 07/26/2023 167.64 cm 30.5 kg/m2 92399.96 g LACEY APODACA [facility] 07/26/2023 13:27:21 Social History Question Answer Notes LastModified by Organizat ion Details LastModified Time Tobacco Smoking Status Never Smoker RUSSEL blood [place] [facility] 05/12/2023 12:57:18 What Is [...] Problems N Anemia N Vascular Disease N Heart Attack ([place]) N Gastrointestinal Disease N Diabetes N Autoimmune disease N Bleeding Disorder N Orthotics N Seizures/Epilepsy N Arthritis Y Blood Clot N AIDS/HIV N Congestive Heart Failure (CHF) N Acid Reflux (GERD) N Cancer N Stroke N Asthma N Peripheral Vascular Disease N Sleep Apnea Y Hepatitis N Heart Disease N Rheumatoid Arthritis N Pulmonary Embolism N Arrhythmia N Fibromyalgia N Hypertension Y Osteoporosis N Gynecological HistoryNo gynecological history recorded. Obstetrics History GPAL:G 0 P 0 0 0 0 Past Encounters Encounter ID Performer Location Encounter Start Date Encounter Closed Date Diagnosis/Indication Diagnosis SNOMED-CT Code Diagnosis ICD10 Code Diagnosis Note [id number] Bruno Roberts MD [place] [address] [place] [address] 05/11/2023 14:06:20 05/31/2023 11:48:19 Neck pain 23520340 M54.2 Cervical spondylosis 387 679458 M47.812 67-year-ol d female with cervical spondylosi s and kyphosis. Her complaints are mostly axial pain. I will prescribe meloxicam. Additional ly she will do physical therapy and follow-up in 4 weeks. If no improvemen t we will get an MRI. Kyphosis o f thoracic spine 858687697 M40.238 [id number] Marco Antonio Sanchez PA-C [place] [address] [place] [address] 05/12/2023 12:48:19 05/12/2023 13:25:57 Bilateral osteoarthritis of knees 2160116665 39601 M17.0 [id number] Krishna Solares PA-C [place] [address] [place] [address] 05/19/2023 12:43:17 06/08/2023 15:20:31 Bilateral osteoarthritis of knees 3913901792 37407 M17.0 [id number] Krishna Solares PA-C [place] [address] [place] [address] 05/26/2023 12:47:11 06/15/2023 15:19:47 Bilateral osteoarthritis of knees 9965650621 04709 M17.0 [id number] Bruno Roberts MD [place] [address] [place] [address] 2023 13:45:18 06/25/2023 15:01:36 Cervical spondylosis 324501183 M47.812 67-year-ol d female with cervical spondylosi [...] is completed. Kyphosis o f thoracic spine 051605822 M40.732 [id number] Bruno Roberts MD [place] [address] [place] [address] 07/26/2023 12:56:45 08/19/2023 15:06:08 Cervical spondylosis 897345407 M47.812 Kyphosis o f thoracic spine 900253705 M40.204 Health Concerns Section Related Observation LastModified by Organization Detai ls LastModified Time None Recorded Concern Status LastModified by Organization Details LastModified Time None Recorded Advance Directives Directive None Recorded Payers Insurance Date Sequence Insurance Name Policy Number Policy Alexandre Covered Member ID Alexandre Member ID Guarantor Name 07/26/2023 1 [facility] (MEDICARE REPLACEMENT/A DVANTAGE - HMO) [id number] Dara Connor [id number] Dara Connor 08/19/2023 1 [facility] (MEDICARE REPLACEMENT/A DVANTAGE - PPO) [id number] Dara Connor [id number] Dara Connor 12/22/2023 PAYMENT PLAN Dara Connor Notes Date Note Type Note Provider Name and Address Organization Details Recorded Time 05/12/2023 text/html I am seeing the patient today under the supervision of Dr. Ernandez who was available but who did not see the patient. Marco Antonio Sanchez PA-C [address], [place], [address], [facility] 05/12/2023 13:06:14 05/19/2023 text/html I am seeing the patient today under the supervision of [] who was available but who did not see the patient. Patient is in today for Gelsyn #2 injection of the bilateral knee. Injection site geeta Solares PA-C [address], [place], [address], [facility] 05/19/2023 13:38:59 05/26/2023 text/html I am seeing the patient today under the supervision of [] who was available but who did not see the patient. Patient is in today for Gelsyn #3 injection of the bilateral knee. Injection site geeta Solares PA-C [address], [place], [address], [facility] 05/26/2023 13:23:43 2023 text/html ROS as noted in the HPI 67-year-old female here to follow-up for complaints of neck and upper back pain. At last encounter she was referred to physical therapy and prescribed meloxicam. Today she states she feels minimally better. Bruno Roberts MD [address], [place], [address], [facility] 2023 17:07:55 07/26/2023 text/html ROS as noted in the HPI [id number] female here to follow-up for complaints of neck [...] thoracic kyphosis. Poor bone quality. Assessment / [id number] female with cervical spondylosis and kyphosis. Patient has completed greater than 6 weeks of physician directed treatment to include activity modification, nonsteroidal anti-inflammatory medications, oral steroids, muscle relaxers, and physical therapy without significant improvement. MRI notes degenerative changes. No severe nerve impingement. Currently symptoms are stable. She will continue her home exercise program and follow-up with me as needed. Bruno Roberts MD [address] [place] [address] [address], [place], [address], [facility] 07/31/2023 13:23:03 OBGyn Episode No OBEpisode recorded.
--- OUTSIDE RECORDS SUMMARY | 2024-08-30 08:35 | XMS_ITS | Patient Health Record ---
Author Organization [facility] Address [address] [place] [address] Care Team Providers Care Insurance Defense Attorney Name Role Phone Dwayne Whittington MD Primary Care Provider Unavail able Rashaad Bonilla Unavailable [phone] Allergies No Known Allergies Reason For Referral No Information Medications Medication SIG (Take, Route, Frequency, Duration) Notes Start Date End Date Status Meloxicam Active Omeprazole 20 MG 1 capsule 30 minutes before morning meal Orally Once a day; Duration: 30 day(s) Active Flonase Active Losartan Potassium 50 MG 1 tablet Orally Once a day; Duration: 30 day(s) Active Chlorthalidone 25 MG 1 tablet in the morning with food Orally Once a day; Duration: 30 day(s) Active Diclofenac Not-Takin g Cetirizine HCl Activ e Allergy Active Rosuvastatin Calcium 20 MG 1 tablet Oral ly Once a day; Duration: 30 day(s) Active Immunizations Vaccine Route Administration [...] Date BlueCare 65 Medicare Preferred [address] [place] [address] [phone] [id number] Dara Connor Self - patient is the insured Medical (General) History Medical History History ICD Code Arthritis Back,Hip,and Knee pain Headaches/Migraines Osteoporosis Reflux ( GERD) Surgical History Surgery Date(Month/Year) Hospitalization History Reason Date(Month/Year) [facility]02/28
--- OUTSIDE RECORDS SUMMARY | 2024-08-30 08:35 | XMS_ITS | Clinical Summary ---
Author Organization [facility] Address [address] [place] [address] Phone Care Team Providers Care Machine Or Machinery Mechanic Name Role Phone Dwayne Freed MD Primary Care Provider [phone] Social History Tobacco Use Types Packs/Day Years [...] 04/05/2016 02/09/2016 Cholesterol Screening (Lipid Panel) 01/10/2022 Falls Risk Assessment 01/10/2022 Hepatitis C Screening 01/10/2022 Social Influencers of Health Screening 01/10/2022 COVID-19 Vaccine ( season) 2023 06/30/2022, 11/18/2021, 12/05/2020, Additional history exists Depression Screening 02/08/2024 Colorectal Cancer Screening: FIT-DNA (Cologuard) 03/18/2024 03/18/2021, 03/18/2021 Influenza Vaccine (#1) 2024 4, 12/13/2022, 11/18/2021, Additional history exists Breast Cancer Screening 04/24/2025 04/25/19 24, 04/20/2022, 04/13/2021, Additional history exists RSV Immunization Adult Patients (1 - 1-dose 75+ series) 2028 DTaP,Tdap,and Td Vaccines (4 - Td or Tdap) 03/02/2031 03/02/2021, 02/16/2018, 05/16/2008 Osteoporosis Screening (Bone Density Screening) 07/04/2031 07/03/2021, 03/09/2019 Pneumococcal Vaccine: 50+ Years Completed 02/28/2020, 09/26/2018 HIB Vaccines Aged Out No longer eligi [...] Procedure Name Priority Date/Time Associated Diagnosis Comments [facility] SCREENING DIGITAL Routine 04/25/2023 3:23 PM EDT Encounter for screening mammogram for malignant neoplasm of breast [facility] DEXA AXIAL SKELETON Routine 07/03/2021 7:52 AM EDT Encounter for screening for osteoporosis from Last 3 Months or Most Recently Relevant to Health Maintenance Results * [facility] SCREENING DIGITAL (04/25/2023 3:23 PM EDT) Anatomical Region Laterality Modality Mammography 04/25/2023 1:55 PM EDT Narrative 04/25/2023 3:23 PM EDT [facility] Diagnostic Imaging Department [address] [place] [address] Patient: MIKEL DAVILA /Age/Sex: 1955 - 67 - F Unit#: [id number] Location/Status: SPDIMAM/REG CLI Mnemonic/Ordering Site: [facility] Ordering Physician: DWAYNE FREED MD [facility] Screening Digital - 04/25/23 - 1409 Report Status:Signed EXAM: [facility] Screening Digital EXAM DATE AND TIME: 04/25/2023 2:10 PM HISTORY: Annual screening COMPARISON: Multiple exams dating back to 2016 TECHNIQUE: Bilateral digital breast tomosynthesis was performed in the CC and MLO projections. Computer aided detection with [employer] 3D 3.1 was employed. TISSUE DENSITY: b. [...] Procedure Note Joanie Rogers MD - 09/26/2023 [facility] Diagnostic Imaging Department [address] [place], [place] [address] Patient: MIKEL DAVILA /Age/Sex: 1955 - 67 - F Unit#: [id number] Location/Status: SPDIMAM/REG CLI Mnemonic/Ordering Site: [facility] Ordering Physician: DWAYNE FREED MD [facility] Screening Digital - 04/25/23 - 1409 Report Status:Signed EXAM: [facility] Screening Digital EXAM DATE AND TIME: 04/25/2023 2:10 PM HISTORY: Annual screening COMPARISON: Multiple exams dating back to 2016 TECHNIQUE: Bilateral digital breast tomosynthesis was performed in the CCand MLO projections. Computer aided detection with [employer] 3D 3.1was employed. TISSUE DENSITY: b. There [...] Physician: JOANIE ROGERS MD Electronically Signed by: OJANIE ROGERS MD Dic Date/Time: 04/25/23 1522 Sign date/Time: 04/25/23 1523 Dwayne Freed MD IMG BI PROCEDURES Final Result * [facility] DEXA AXIAL SKELETON (07/03/2021 7:52 AM EDT) Anatomical Region Laterality Modality Mammography 07/02/2021 1:19 PM EDT Narrative 07/03/2021 7:52 AM EDT [facility] Diagnostic Imaging Department [address] [place] [address] Patient: YASMANI DAVILAMIKELPHANI Salas D.O.B./Age/Sex: 1955 - 66 - F Unit#: [id number] Location/Status: SPDIMAM/REG CLI Mnemonic[facility] Ordering Physician: DWAYNE FREED MD [facility] Dexa [...] probability of hip fracture of 5.8%. Code 86827 Dictating Physician: DAVIDA DE LUNA MD Electronically Signed by: DAVIDA DE LUNA MD Dic Date/Time: 07/03/21749 Sign date/Time: 07/03/21751 Procedure Note Davida De Luna MD - 01/27/2022 [facility] Diagnostic Imaging Department [address] [place] [address] Patient: MIKEL DAVILA Josue TaylorB./Age/Sex: 1955 - 66 - F Unit#: [id number] Location/Status: [facility] Mnemonic[facility] Ordering Physician: DWAYNE FREED MD [facility] Dexa [...] density of the femurs bilaterally is 0.771 gm/ub7ncrhc is 76% of that of young normals [...] probability of hip fracture of 5.8%. Code 82188 Dictating Physician: DAVIDA DE LUNA MD Electronically Signed by: DAVIDA DE LUNA MD Dic Date/Time: 07/03/21 0750 Sign date/Time: 07/03/21 075 Dwayne Freed MD IM BI PROCEDURES Final Result from Last 3 Months or Most Recently Relevant to Health Maintenance [place] [phone] [facility] Care Teams Machine Or Machinery Mechanic Relationship Specialty Start Date End Date Dwayne Freed MD [address] PCP - General Internal Medicine 05/02/24
--- OUTSIDE RECORDS SUMMARY | 2024-08-30 08:35 | XMS_ITS | Encounter Summary ---
Author Organization [employer] [facility] Address [address] [place] [address] 7 [place] [address] Care Team Providers Care Field Radio Operator Name Role Phone Unavailable Primary Care Provider Unavailabl e Encounter Details Date Type Department Care Team (Latest Contact Info) Description 03/13/2018 Abstract [facility] CONVERSIONS Dental, Provider, DDS Social History [...]
== END 2024-08-08 00:01 | disposition home or self-care (01) ==
LOC: HO.MAMMO
PROVIDERS: PCP Pediatrics; Visit Provider Pediatrics
DX: M17.0 Bilateral primary osteoarthritis of knee (principal)
CPT/HCPCS: 20610; J7318

== ENCOUNTER 2024-08-08 13:49 | Outpatient (AMB) | payer MEDICARE, SELFPAY ==
--- OUTSIDE RECORDS SUMMARY | 2024-08-08 14:23 | XMS_ITS | Encounter Summary ---
Author Organization [facility] Address [address] [place] [address] [address] [place] [address] Care Team Providers Care Form Setter Name Role Phone Unavailable Primary Care Provider Unavailabl e Encounter Details Date Type Department Care Team (Latest Contact Info) Description 03/13/[address] [facility] CONVERSIONS Dental, Provider, DDS Social History [...]
--- OUTSIDE RECORDS SUMMARY | 2024-08-08 14:23 | XMS_ITS | Clinical Summary ---
Author Organization [facility] Address [address] [place] [address] Phone Care Team Providers Care Head Wood Grinder Name Role Phone Dwayne Freed MD Primary Care Provider [phone] Social History Tobacco Use Types Packs/Day Years [...] 03/18/2024 03/18/2021, 03/18/2021 Breast Cancer Screening 04/24/2025 04/25/19 24, 04/20/2022, 04/13/2021, Additional history exists RSV Immunization [...] Procedure Name Priority Date/Time Associated Diagnosis Comments [facility] SCREENING DIGITAL Routine 04/25/2023 3:23 PM EDT Encounter for screening mammogram for malignant neoplasm of breast [facility] DEXA AXIAL SKELETON Routine 07/03/2021 7:52 AM EDT Encounter for screening for osteoporosis from Last 3 Months or Most Recently Relevant to Health Maintenance Results * [facility] SCREENING DIGITAL (04/25/2023 3:23 PM EDT) Anatomical Region Laterality Modality Mammography 04/25/2023 1:55 PM EDT Narrative 04/25/2023 3:23 PM EDT [facility] Diagnostic Imaging Department [address] [place] [address] Patient: MIKEL DAVILA /Age/Sex: 1955 - 67 - F Unit#: [id number] Location/Status: SPDIMAM/REG CLI Mnemonic/Ordering Site: [facility] Ordering Physician: DWAYNE FREED MD [facility] Screening Digital - 04/25/23 - 1409 Report Status:Signed EXAM: [facility] Screening Digital EXAM DATE AND TIME: 04/25/2023 2:10 PM HISTORY: Annual screening COMPARISON: Multiple exams dating back to 2015 TECHNIQUE: Bilateral digital breast tomosynthesis was performed in the CC and MLO projections. Computer aided detection with [employer] 3D 3.1 was employed. TISSUE DENSITY: b. There are scattered areas of fibroglandular density. FINDINGS: No suspicious masses, grouped microcalcifications, or areas of architectural distortion are seen. The skin and vascularity are unremarkable. IMPRESSION: Stable mammographic appearance of the breasts. No evidence of malignancy is seen. A negative [...] Date/Time: 04/25/23 1522 Sign date/Time: 04/25/23 1523 Procedure Note Joanie Rogers MD - 09/26/2023 [facility] Diagnostic Imaging Department [address] [place] [address] [id number] Patient: MIKEL DAVILA /Age/Sex: 1955 - 67 - F Unit#: [id number] Location/Status: SPDIMAM/REG CLI Mnemonic/Ordering Site: [facility] Ordering Physician: DWAYNE FREED MD [facility] Screening Digital - 04/25/23 - 1409 Report Status:Signed EXAM: [facility] Screening Digital EXAM DATE AND TIME: 04/25/2023 2:10 PM HISTORY: Annual screening COMPARISON: Multiple exams dating back to 2016 TECHNIQUE: Bilateral digital breast tomosynthesis was performed in the CCand MLO projections. Computer aided detection with [employer] 3D 3.1was employed. TISSUE DENSITY: b. There [...] by: JOANIE ROGERS MD Dic Date/Time: 04/25/23 152 Sign date/Time: 04/25/23 1523 Dwayne Freed MD IMG BI PROCEDURES Final Result * [facility] DEXA AXIAL SKELETON (07/03/2021 7:52 AM EDT) Anatomical Region Laterality Modality Mammography 07/02/2021 1:19 PM EDT Narrative 07/03/2021 7:52 AM EDT [facility] Diagnostic Imaging Department [address] [place] [address] Patient: MIKEL DAVILA Josue /Age/Sex: 1955 - 66 - F Unit#: [id number] Location/Status: SPDIMAM/REG CLI Mnemonic[facility] Ordering Physician: DWAYNE FREED MD [facility] Dexa Axial Skeleton - 07/02/21 - HISTORY: The patient is a 66-year-old postmenopausal female with clinical concern for metabolic bone disease. FINDINGS: Dual [...] 86% of that of age matched controls. This yields a T-score of -1.9 and a [...] the prior examination of 03/07/2019. There has been a decrease of 6.3% in bone mineral density in the right femur and a decrease of 2.3% in bone mineral density in the left femur. 2. FRAX analysis yields a 10-year probability of major osteoporotic fracture of 23.2% and a 10-year probability of hip fracture of 5.8%. Code 48420 Dictating Physician: DAVIDA DE LUNA MD Electronically Signed by: DAVIDA DE LUNA MD Dic Date/Time: 07/03/21749 Sign date/Time: 07/03/21751 Procedure Note Davida De Luna MD - 01/27/2022 [facility] Diagnostic Imaging Department [address] [place] [address] Patient: MIKEL DAVILA Josue /Age/Sex: 1955 - 66 - F Unit#: [id number] Location/Status: [facility] Mnemonic[facility]ing [facility] Ordering Physician: DWAYNE FREED MD [facility]ani [...] density of the femurs bilaterally is 0.771 gm/at2hoguo is 76% of that of young normals [...] probability of hip fracture of 5.8%. Code 69726 Dictating Physician: DAVIDA DE LUNA MD Electronically Signed by: DAVIDA DE LUNA MD Dic Date/Time: 07/03/21 075 Sign date/Time: 07/03/21751 Dwayne Freed MD IM BI PROCEDURES Final Result from Last 3 Months or Most Recently Relevant to Health Maintenance [place] [id number] [facility] Care Teams Head Wood Grinder Relationship Specialty Start Date End Date Dwayne Freed MD [address] PCP - General Internal Medicine 05/02/24
--- OUTSIDE RECORDS SUMMARY | 2024-08-08 14:23 | XMS_ITS | Data Portability ---
Author Organization [facility], [facility] Address [address] [place] [address] Care Team Providers Care Team Sports Sales Associate Name Role Phone BRENDA FREED Primary Care Provider Assessment No assessment recorded. Plan of Treatment Reminders Order Date Submit Date Provider Last Modified By Organization Details Last Modified Time Details Appointments None recorded. Lab None recorded. Referral None recorded. Procedures None recorded. Surgeries None recorded. Imaging MRI, cervical spine, w/o contrast - MRI c-spine eval neck pain and rue pain 2023 024 [facility], [address], [facility] [address], [place], [address], 18:54:13 Medication Orders None recorded. Patient TargetsNo targets recorded. Patient InstructionsNo instructions recorded. Reason for Referral None Reported. Results Created Date Observation Date Name Description Value Unit Range Abnormal Flag Note LastModifiedBy Organization Detail LastModifiedTime 06/11/19 24 06/09/2023 MRI, cervi kamlesh spine , w/o contr ast No observ ation record ed. [facility] [address], [place], [address], 08/08/2023 15:04:23 Result Notes None recorded. Problems Name Problem SNOMED Code Status Onset Date Resolution Date Notes Provider Name and Address Organization Details Recorded Time Cervical spondylosis 641283280 Active 2023 Bruno Roberts MD [address] [facility] [address] [facility] [address], [place], [address] [place] [address] [facility] 4 13:22:42 Kyphosis of thoracic spine 897679538 Active 2023 Bruno Roberts MD [address], [place], [address], [facility] 13:22:43 Problem Notes None recorded. Procedures Surgical History Date Name Laterality Status Provider Name and Address Organization Details Recorded Time 4 Gelsyn-3 Knee Injection completed Krishna Solares PA-C [address], [place], [address], [facility] 05/26/2023 13:23:24 4 Gelsyn-3 Knee Injection completed Krishna Solares PA-C [address], [place], [address], [facility] 05/19/2023 12:47:10 4 Gelsyn-3 Knee Injection completed Marco Antonio Sanchez PA-C [address], [place], [address], [facility] 05/11/2023 16:13:59 Imaging Results None recorded. Procedure Notes None recorded. Medical Equipment None Reported. Allergies No known drug allergies Medications Name Sig Start Date Stop Date Status Note LastModified by Organization Details LastModified Time losartan 50 mg tablet TAKE 1 TABLET BY MOUTH EVERY DAY active Not Available Not Available No t Available amoxicillin 500 mg capsule TAKE 1 CAPSULE BY MOUTH 3 TIMES A DAY UNTIL GONE 05/25 completed Not Available Not Available Not Available meloxicam 15 mg tablet TAKE 1 TABLET BY MOUTH EVERY DAY FOR 30 DAYS active Not Available Not Available No t Available chlorthalid one 25 mg tablet TAKE 1 TABLET BY MOUTH EVERY DAY active Not Available Not Available No t Available alendronate 35 mg tablet TAKE 1 TABLET BY MOUTH ONE TIME PER WEEK active Not Available Not Available No t Available oxycodone-a cetaminophe n 5 mg-325 mg tablet TAKE 1 TABLET BY MOUTH THREE TIMES A DAY NEEDED FOR 5 DAYS 05/25 completed Not Available Not Available Not Available clotrimazol e-betametha sone 1 %-0.05 % topical cream APPLY TO AFFECTED & SURROUNDI NG AREA(S) TWICE A DAY FOR 2 WEEKS TOPICALLY EVERY MORNING & EVENING active Not Available Not Available No t Available betamethaso ne dipropionat e 0.05 % topical cream APPLY TO AFFECTED AREA EVERY DAY NEEDED FOR 10 DAYS, FOR ECZEMA/RA SH. active Not Available Not Available No t Available omeprazole 20 mg capsule,del ayed release TAKE 1 CAPSULE BY MOUTH EVERY DAY active Not Available Not Available No t Available cyclobenzap rine 5 mg tablet TAKE 1 TABLET BY MOUTH THREE TIMES A DAY NEEDED FOR 10 DAYS 05/25 completed Not Available Not Available Not Available rosuvastati n 20 mg tablet TAKE 1 TABLET BY MOUTH EVERY DAY active Not Available Not Available No t Available Vitals Date Recorded Body height Body mass index (BMI) Body weight Provider Name and Address Organization Details Last Updated DateTime 05/12/2023 167.64 cm 30.2 kg/m2 28530.77 g RUSSEL NARVAEZ [facility] 05/12/2023 12:56:36 Date Recorded Body height Body mass index (BMI) Body weight Provider Name and Address Organization Details Last Updated DateTime 05/19/2023 167.64 cm 30.2 kg/m2 65941.77 g NEGRITO GRANT [facility] 05/19/2023 13:18:14 Date Recorded Body height Body mass index (BMI) Body weight Provider Name and Address Organization Details Last Updated DateTime 05/26/2023 167.64 cm 30.5 kg/m2 62392.96 g NICOLE URRUTIA [facility] 05/26/2023 13:02:32 Date Recorded Body height Body mass index (BMI) Body weight Provider Name and Address Organization Details Last Updated DateTime 2023 167.64 cm 30.5 kg/m2 48498.96 g LACEY APODACA [facility] 2023 14:37:17 Date Recorded Body height Body mass index (BMI) Body weight Provider Name and Address Organization Details Last Updated DateTime 07/26/2023 167.64 cm 30.5 kg/m2 04185.96 g LACEY APODACA [facility] 07/26/2023 13:27:21 Social History Question Answer Notes LastModified by Organizat ion Details LastModified Time Tobacco Smoking Status Never Smoker RUSSEL blood [place] - [place] 05/12/2023 12:57:18 What Is Your Relationship Status? [email or web address] Information not available 05/12/2023 Sex: Unknown Functional Status Question Answer Note LastModified by Organizat ion Details LastModified Time How many times per week do you consume alcohol? Less than 1 time per week Information not available 05/12/2023 Do you use any illicit or recreational drugs? No Information not available 05/12/2023 Do you or have you ever used any other forms of tobacco or nicotine? No Information not available 05/12/2023 What is your level of alcohol consumption? Occasional Information not available 05/12/2023 Mental Status None recorded. Family History Nothing Reported. Medical History Condition Response Allergies/Hayfever N Coronary Artery Disease N Anxiety/Depression N Emphysema N Thyroid Problems N COPD N Pacemaker N Kidney/Bladder Problems N Anemia N Vascular Disease N Gastrointestinal Disease N Heart Attack (NH) N Diabetes N Autoimmune disease N Bleeding Disorder N Orthotics N Arthritis Y Seizures/Epilepsy N Blood Clot N AIDS/HIV N Congestive Heart Failure (CHF) N Acid Reflux (GERD) N Cancer N Stroke N Asthma N Peripheral Vascular Disease N Sleep Apnea Y Hepatitis N Heart Disease N Rheumatoid Arthritis N Arrhythmia N Pulmonary Embolism N Fibromyalgia N Hypertension Y Osteoporosis N Gynecological HistoryNo gynecological history recorded. Obstetrics History GPAL:G 0 P 0 0 0 0 Past Encounters Encounter ID Performer Location Encounter Start Date Encounter Closed Date Diagnosis/Indication Diagnosis SNOMED-CT Code Diagnosis ICD10 Code Diagnosis Note [id number] Bruno Roberts MD [place] [address] [place] [address] 05/11/2023 14:06:20 05/31/2023 11:48:19 Neck pain 85633625 M54.2 Cervical spondylosis 387 152241 M47.812 67-year-ol d female with cervical spondylosi s and kyphosis. Her complaints are mostly axial pain. I will prescribe meloxicam. Additional ly she will do physical therapy and follow-up in 4 weeks. If no improvemen t we will get an MRI. Kyphosis o f thoracic spine 684557834 M40.551 [id number] Marco Antonio Sanchez PA-C [place] [address] [place] [address] 05/12/2023 12:48:19 05/12/2023 13:25:57 Bilateral osteoarthritis of knees 4851254465 67115 M17.0 [id number] Krishna Solares PA-C [place] [address] [place] [address] 05/19/2023 12:43:17 06/08/2023 15:20:31 Bilateral osteoarthritis of knees 7051612639 96418 M17.0 [id number] Krishna Solares PA-C [place] [address] [place] [address] 05/26/2023 12:47:11 06/15/2023 15:19:47 Bilateral osteoarthritis of knees [id number] 33827 M17.0 [id number] Bruno Roberts MD [place] [address] [place] [address] 2023 13:45:18 06/25/2023 15:01:36 Cervical spondylosis 586756352 M47.812 67-year-ol d female with cervical spondylosi s and kyphosis. Patient has completed greater than 6 weeks of physician directed treatment to include activity modificati on, nonsteroid al anti-infla mmatory medication s, oral steroids, muscle relaxers, and physical therapy without significan t improvemen t. I will order an MRI of the cervical spine and she will follow-up once this is completed. Kyphosis o f thoracic spine 912325160 M40.192 [id number] Bruno Roberts MD [place] [address] [place] [address] 07/26/2023 12:56:45 08/19/2023 15:06:08 Cervical spondylosis 787374816 M47.812 Kyphosis o f thoracic spine 785756496 M40.204 Health Concerns Section Related Observation LastModified by Organization Detai ls LastModified Time None Recorded Concern Status LastModified by Organization Details LastModified Time None Recorded Advance Directives Directive None Recorded Payers Insurance Date Sequence Insurance Name Policy Number Policy Alexandre Covered Member ID Alexandre Member ID Guarantor Name 07/26/2023 1 [facility] (MEDICARE REPLACEMENT/A DVANTAGE - HMO) [id number] Dara Connor [id number] Dara Connor 08/19/2023 1 [facility] (MEDICARE REPLACEMENT/A DVANTAGE - PPO) [id number] Dara Salas Nikolas [id number] Dara Connor 12/22/2023 PAYMENT PLAN Dara Connor Notes Date Note Type Note Provider Name and Address Organization Details Recorded Time 05/12/2023 text/html I am seeing the patient today under the supervision of Dr. Ernandez who was available but who did not see the patient. Marco Antonio Sanchez PA-C [address], [place], [address], [facility] 05/12/2023 13:06:14 05/19/2023 text/html I am seeing the patient today under the supervision of [] who was available but who did not see the patient. Patient is in today for Gelsyn #2 injection of the bilateral knee. Injection site geeta Solares PA-C [address], [place], [address], [facility] 05/19/2023 13:38:59 05/26/2023 text/html I am seeing the patient today under the supervision of [] who was available but who did not see the patient. Patient is in today for Gelsyn #3 injection of the bilateral knee. Injection site geeta Solares PA-C [address], [place], [address], [facility] 05/26/2023 13:23:43 2023 text/html 67-year-old fema le here to follow-up for complaints of neck and upper back pain. At last encounter she was referred to physical therapy and prescribed meloxicam. Today she states she feels minimally better. Bruno Roberts MD [address], [place], [address], [facility] 2023 17:07:55 07/26/2023 text/html [id number] f emale here to follow-up for complaints of neck and upper back pain. At last encounter she was referred for an MRI as she had completed physical therapy and meloxicam without improvement. Today she states she feels minimally better. Pain is a 5 out of 10 in the right trapezial region and neck. ROSROS as noted in the HPIPhysical ExamConstitutional: General Appearance: healthy-appearing and NAD.Psychiatric: Orientation: oriented to time, place, and person. Mood and Affect: normal mood and affect.Cardiovascular System: Arterial Pulses Right: Normal radial pulse. Arterial Pulses Left: Normal radial pulse. Edema Right: none. Edema Left: none. Gait and Station: Gait And Stance normal stance, no limp, ambulating with no assistive devices, and tandem gait test abnormal. Neurological System: Biceps Reflex Right: normal (2). Biceps Reflex Left: normal (2). Brachioradialis Reflex Right: normal (2). Brachioradialis Reflex Left: normal (2). Triceps Reflex Right: normal (2). Triceps Reflex Left: normal (2). Sensation on the Right: normal median nerve distribution and ulnar nerve distribution and C5 normal, C6 normal, C7 normal, C8 normal, T1 normal, and distal extremities normal. Sensation on the Left: normal median nerve distribution and ulnar nerve distribution and C5 normal, C6 normal, C7 normal, C8 normal, T1 normal, and distal extremities normal. Special Tests on the Right: Donahue's reflex present. Special Tests on the Left: Donahue's reflex present. Cervical Spine: Inspection: no muscle atrophy and alignment head tilted forward (Positive sagittal balance with significant thoracic kyphosis.). Soft Tissue Palpation on the Right: no tenderness of the paracervicals. Soft TissuePalpation on the Left: no tenderness of the paracervicals. Bony Palpation: no tenderness of the occipital protuberance or the spinous process. Active Range of Motion: flexion normal, extension normal, and no crepitus.Motor Strength: C5 on the Right: abduction deltoid 5/5. C5 on the Left: abduction deltoid 5/5. C6 on the Right: flexion biceps 5/5. C6 on the Left: flexion biceps 5/5. C7 on the Right: extension triceps 5/5. C7 on the Left: extension triceps 5/5. C8 on the Right: flexion fingers 5/5. C8 on the Left: flexion fingers 5/5.Skin: Head and Neck: normal. Right Upper Extremity: normal. Left Upper Extremity: normal. I independently reviewed an MRI of the cervical spine obtained June 09, 2023 which notes kyphosis. Multiple levels of degenerative disc disease and facet arthropathy. Central stenosis at C5-6. I independently reviewed 4 view radiographs of the cervical spine obtained to include AP, lateral, flexion and extension and note severe spondylosis. No fractures. Positive sagittal balance with thoracic kyphosis. Poor bone quality. Assessment / [id number] female with cervical spondylosis and kyphosis. Patient has completed greater than 6 weeks of physician directed treatment to include activity modification, nonsteroidal anti-inflammatory medications, oral steroids, muscle relaxers, and physical therapy without significant improvement. MRI notes degenerative changes. No severe nerve impingement. Currently symptoms are stable. She will continue her home exercise program and follow-up with me as needed. Bruno Roberts MD [address] [place] [address] [address], [place], [address], [facility] 07/31/2023 13:23:03 OBGyn Episode No OBEpisode recorded.
--- NOTE | 2024-08-08 14:36 | A.OFFVIS_ITS ---
Intake Visit Reasons: INJ- Bilateral knee Durolane injections Intake Note: 69 yo female presents to the office today #1 bilat durolane injections. Allergies No Known Allergies Allergy (Verified 07/16/24 11:40) HPI HPI INJ- Bilateral knee Durolane injections: Details: 69 yo female presents to the office today #1 bilat durolane injections. 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 Tenderness along the medial patellar femoral joint. Calf supple and nontender neurovascularly intact. Office Procedures AMB Joint Injection/Aspiration Joint Injection/Aspiration Details: bilat knee durolane Primary Site: right knee Secondary Site: left knee Prep: site was prepped using aseptic technique, ethochloride spray was applied and injection warnings given Injected: in the joint Approach Used: anterolateral Coding 68416 - Glenohumeral/Tronchanteric Bursa/Intraarticular Procedure code (CPT) selection complete Assessment & Plan Assessment & Plan (1) Osteoarthritis of knees, bilateral: Code(s): M17.0 - Bilateral primary osteoarthritis of knee Category: Medical Plan: Plan was to proceed with gel injection today. Bilat knee durolane Injection performed today which the patient tolerated well. She will rest ice and use anti-inflammatories as needed for the next several days. She will see me back if symptoms persist, otherwise, fu prn. Coding Level of Care Code Procedure Only Diagnoses Osteoarthritis of knees, bilateral M17.0 CPT Codes Coding - Joint 7: 46129 - Glenohumeral/Tronchanteric Bursa/Intraarticular ([id number])
== END 2024-08-08 15:14 | disposition home or self-care (01) ==
LOC: HO.HOS 13:50
PROVIDERS: PCP Pediatrics; Visit Provider Physician Assistant
DX: M17.0 Bilateral primary osteoarthritis of knee (principal)
CPT/HCPCS: 20610

== ENCOUNTER 2024-09-03 11:00 | Outpatient (RCR) | payer MEDICARE, SELFPAY ==
--- NOTE | 2024-08-06 11:47 | MHC.PT.EP ---
[facility] [place] Office [place] Office [place] Office [address] Tamir Yao [address] [phone] F: [phone] F: [phone] F: [phone] F: [phone] Physical Therapy Plan of Care Date of Evaluation: 08/06/24 Date of Surgery: Diagnosis: OA of knee, bilateral Assessment: Patient is a 69 year old R handed female who presents with s/s consistent with bilateral knee OA, pain. She is unemployed and fairly sedentary at this time. Patient past medical history includes OA, HTN, and plantar fasciitis. Current impairments include pain, balance, flexibility, ROM, strength, activity tolerance and functional mobility. Functional limitations include decreased ability to walk, transfer, stand, perform standing activities, and negotiate curbs and stairs. Patient is motivated with good rehab potential. Skilled PT will address impairments and functional limitations in order to achieve goals. Frequency and Duration: The patient will be seen 2x/week for 5 weeks Short Term Goals: I with HEP - 2 weeks AROM flexion to 124 b/l - 3 weeks Extension to 10 on R, 5 on L - 3 weeks Machine Setter Supervisor Goals: Min tight gastroc - 90/90 HS to < 30 b/l - 5 weeks LEFS 54/80 - 5 weeks Knee strength 4+/5 grossly - 5 weeks Able to walk > 30 minutes without increased pain - 5 weeks Treatment Plan: Modalities to reduce pain, spasms and effusion. Manual therapy to restore motion and function. Therapeutic exercise to improve strength and flexibility. Neuromuscular re-education for posture and balance. Therapeutic activities to return to functional activities of daily living. Electronically signed by: Ashwin Cox, PT Please sign and return to therapist. Thank you for your referral.
--- NOTE | 2024-12-06 12:36 | MHC.PT.DC ---
[facility] [place] Office [place] Office [place] [facility] [address] Tamir Yao [address] [phone] F: [phone] F: [phone] F: [phone] F: [phone] Physical Therapy Discharge Report Diagnosis: OA of knee, bilateral Date of Surgery: Date of Evaluation: 08/06/24 Date of Discharge: 09/17/24 Treatments to Date: 5 Cancellations to Date: No Shows to Date: Discharge Status: Improved Function Independent with HEP Discharge Summary: 09/03/24: pt progressing well and more I with HEP. we will continue 1 more visit then d/c to HEP. HEP updated and bands issued. 08/27/24: pt with some relief in s/s. still ambulates with significantly reduced flexion and lacking TKE. 08/20; Pt percy new exs with c/o fatigue. Pt knee ext limited. 08/13/24: pt progressing well with skilled PT for b/l knee OA. progress HEP NV. Patient is a 69 year old R handed female who presents with s/s consistent with bilateral knee OA, pain. She is unemployed and fairly sedentary at this time. Patient past medical history includes OA, HTN, and plantar fasciitis. Current impairments include pain, balance, flexibility, ROM, strength, activity tolerance and functional mobility. Functional limitations include decreased ability to walk, transfer, stand, perform standing activities, and negotiate curbs and stairs. Patient is motivated with good rehab potential. Skilled PT will address impairments and functional limitations in order to achieve goals. Electronically signed by: Ashwin Cox, PT Please sign and return to therapist. Thank you for your referral.
== END 2024-12-06 12:36 | disposition home or self-care (01) ==
LOC: HO.PTCHIC 11:00
PROVIDERS: PCP Pediatrics; Visit Provider Physician Assistant
DX: M17.0 Bilateral primary osteoarthritis of knee (principal)
CPT/HCPCS: 97110; 97162

== ENCOUNTER 2024-09-13 13:11 | Outpatient (REF) | payer MEDICARE, SELFPAY ==
--- NOTE | ~2024-09-13 | MM_ITS ---
EXAMINATION: DXA BONE DENSITY AXIAL HISTORY: OSTEOPENIA TECHNIQUE: Gtxh Dual energy absorptiometry (DEXA) of the lumbar spine, total left hip, and femoral neck was performed. COMPARISON: There are no prior studies for comparison. FINDINGS: The bone mineral density of the lumbar spine is 1.105 g/cm2, corresponding to a T-score of -0.8, and a Z-score of 0.2. This is indicative of normal bone mineral density. The bone mineral density of the left total hip is 0.753 g/cm2, corresponding to a T-score of -2.0, and a Z-score of -1.0. This is indicative of osteopenia. The bone mineral density of the left femoral neck is 0.683 g/cm2, corresponding to a T-score of -2.6, and a Z-score of -1.3. This is indicative of osteoporosis. MM/XR DEXA axial skeleton IMPRESSION: Based on bone mineral density, and according to World Health Organization (WHO) criteria, the diagnosis is consistent with osteoporosis. Statistically, 68% of repeat scans fall within 1 SD (+/- 0.010 g/cm2 for AP spine L1-L4) and 1 SD (+/- 0.012 g/cm2 for femur total) FRAX is a trademark of the [employer]'s Branch for Metabolic Bone Disease, a World Health Organization (WHO) Collaborating Center. Electronically signed by: Jersey Alba MD 09/13/2024 02:23 PM EDT
--- OUTSIDE RECORDS SUMMARY | 2024-09-13 13:16 | XMS_ITS | Clinical Summary ---
Author Organization [facility] Address [address] [place] [address] Phone Care Team Providers Care Wreath Machine Operator Name Role Phone Dwayne Freed MD Primary Care Provider [phone] Social History Tobacco Use Types Packs/Day Years [...] Procedure Name Priority Date/Time Associated Diagnosis Comments [facility] SCREENING DIGITAL Routine 04/25/2023 3:23 PM EDT Encounter for screening mammogram for malignant neoplasm of breast [facility] DEXA AXIAL SKELETON Routine 07/03/2021 7:52 AM EDT Encounter for screening for osteoporosis from Last 3 Months or Most Recently Relevant to Health Maintenance Results * [facility] SCREENING DIGITAL (04/25/2023 3:23 PM EDT) Anatomical Region Laterality Modality Mammography 04/25/2023 1:55 PM EDT Narrative 04/25/2023 3:[address] [facility] Diagnostic Imaging Department [address] [place] [address] Patient: MIKEL DAVILA /Age/Sex: 1955 - 67 - F Unit#: [id number] Location/Status: SPDIMAM/REG CLI Mnemonic/Ordering Site: [facility] Ordering Physician: DWAYNE FREED MD [facility] Screening Digital - 04/25/23 - 1409 Report Status:Signed EXAM: [facility] Screening Digital EXAM DATE AND TIME: 04/25/2023 2:10 PM HISTORY: Annual screening COMPARISON: Multiple exams dating back to 2016 TECHNIQUE: Bilateral digital breast tomosynthesis was performed in the CC and MLO projections. Computer aided detection with [employer] 3D 3.1 was employed. TISSUE DENSITY: b. [...] Note Joanie Rogers MD - 09/26/2023 [facility] Diagnostic Imaging Department [address] [place], [place] [address] Patient: MIKEL DAVILA /Age/Sex: 1955 - 67 - F Unit#: [id number] Location/Status: SPDIMAM/REG CLI Mnemonic/Ordering Site: [facility] Ordering Physician: DWAYNE FREED MD [facility] Screening Digital - 04/25/23 - 1409 Report Status:Signed EXAM: [facility] Screening Digital EXAM DATE AND TIME: 04/25/2023 2:10 PM HISTORY: Annual screening COMPARISON: Multiple exams dating back to 2016 TECHNIQUE: Bilateral digital breast tomosynthesis was performed in the CCand MLO projections. Computer aided detection with [employer] 3D 3.1was employed. TISSUE DENSITY: b. There [...] MD IMG BI PROCEDURES Final Result * [facility] DEXA AXIAL SKELETON (07/03/2021 7:52 AM EDT) Anatomical Region Laterality Modality Mammography 07/02/2021 1:19 PM EDT Narrative 07/03/2021 7:[address] [facility] Diagnostic Imaging Department [address] [place] [address] Patient: YASMANI DAVILAMIKELPHANI Salas D.O.B./Age/Sex: 1955 - 66 - F Unit#: [id number] Location/Status: SPDIMAM/REG CLI Mnemonic[facility] Ordering Physician: DWAYNE FREED MD Giovani [...] probability of hip fracture of 5.8%. Code 05645 Dictating Physician: DAVIDA DE LUNA MD Electronically Signed by: DAVIDA DE LUNA MD Dic Date/Time: 07/03/21749 Sign date/Time: 07/03/21751 Procedure Note Davida De Luna MD - 01/27/2022 [facility] Diagnostic Imaging Department [address] [place] [address] Patient: MIKEL DAVILA Josue TaylorB./Age/Sex: 1955 - 66 - F Unit#: [id number] Location/Status: [facility] Mnemonic[facility] Ordering Physician: DWAYNE FREED MD Giovani [...] density of the femurs bilaterally is 0.771 gm/ef0wpbdu is 76% of that of young normals [...] probability of hip fracture of 5.8%. Code 44234 Dictating Physician: DAVIDA DE LUNA MD Electronically Signed by: DAVIDA DE LUNA MD Dic Date/Time: 07/03/21 0750 Sign date/Time: 07/03/21 075 Dwayne Freed MD IM BI PROCEDURES Final Result from Last 3 Months or Most Recently Relevant to Health Maintenance [place] [phone] [facility] [place] [address] Care Teams Wreath Machine Operator Relationship Specialty Start Date End Date Dwayne Freed MD [address] PCP - General Internal Medicine 05/02/24
--- OUTSIDE RECORDS SUMMARY | 2024-09-13 13:16 | XMS_ITS | Patient Health Record ---
Author Organization [facility] Address [address] [place] [address] Care Team Providers Care Oil Sales And Service Rep Name Role Phone Dwayne Whittington MD Primary Care Provider Unavail able Rashaad Bonilla Unavailable [phone] Allergies No Known Allergies Reason For Referral [...] Date [employer] 65 Medicare Preferred [address] [place] [address] [phone] [id number] Draa Connor Self - patient is the insured Medical (General) History Medical History History ICD Code Arthritis Back,Hip,and Knee pain Headaches/Migraines Osteoporosis Reflux ( GERD) Surgical History Surgery Date(Month/Year) Hospitalization History Reason Date(Month/Year) [facility]02/28
--- OUTSIDE RECORDS SUMMARY | 2024-09-13 13:16 | XMS_ITS | Encounter Summary ---
Author Organization [employer] [facility] Address [address] [place] [address] 7 [place] [address] Care Team Providers Care Manager Heart Failure Name Role Phone Unavailable Primary Care Provider Unavailabl e Encounter Details Date Type Department Care Team (Latest Contact Info) Description 03/13/2018 Abstract [facility] CONVERSIONS Dental, Provider, DDS Social History [...]
== END 2024-09-13 13:12 | disposition home or self-care (01) ==
LOC: HO.MAMMO 13:11
PROVIDERS: PCP Pediatrics; Visit Provider Pediatrics
DX: Z13.820 Encounter for screening for osteoporosis (principal); M85.89 Other specified disorders of bone density and structure, multiple sites
CPT/HCPCS: 77080

== ENCOUNTER → 2024-09-13 13:30 | Outpatient (BNV) | payer MEDICARE, SELFPAY | PROVIDERS: PCP Pediatrics; Visit Provider Radiology Diagnostic Radiology | DX: E28.39 Other primary ovarian failure (principal) | CPT/HCPCS: 77080 ==